=== PATIENT | female | born 1970 | race Caucasian/White ===

== ENCOUNTER 2016-12-09 15:21 | Observation (INO) ==
[2016-12-09] MEDS ORDERED: Ketorolac 30 MG/ML VIAL IV ONE (16:18)
[2016-12-09 16:20] LABS: Bilirubin,Urine Negative (Negative); Blood,Urine Large (Negative); Clarity,Urine Cloudy (Clear); Color,Urine Dark Yellow (Yellow); Glucose,Urine (UA) Normal (Normal); Ketones,Urine Negative (Negative); Leukocyte Esterase,Urine Trace (Negative); Nitrite,Urine Negative (Negative); Protein,Urine 30 mg/dL (Neg-Trace); Specific Gravity,Urine 1.023 (1.010-1.025); Urobilinogen,Urine Normal (Normal)
[2016-12-09 16:23] LABS: Bacteria,Urine None Seen per hpf (None-Few); Hyaline Casts,Urine None Seen per lpf (None-Few); RBC,Urine TNTC per hpf (0-3); Squamous Epithelial Cell,Urine Many per lpf (None-Few); WBC,Urine 0-3 per hpf (0-3)
[2016-12-09 17:24] LABS: Basophils # 0.1 K/mcL (0.0-0.2); Basophils % 0.5 %; Eosinophils # 0.1 K/mcL (0.0-0.6); Hematocrit 33.9 % (35.3-44.9); Hemoglobin 11.7 g/dL (11.5-15.4); Immature Granulocytes % 0.3 % (0-4); Lymphocytes # 1.5 K/mcL (0.6-4.6); Lymphocytes % 14.3 %; Mean Corpuscular HGB Conc 34.5 g/dL (31.6-35.5); Mean Corpuscular Hemoglobin 29.5 pg (28.0-33.3); Mean Corpuscular Volume 85.6 fL (83.0-100.0); Mean Platelet Volume 9.1 fL (9.4-12.4); Monocytes # 0.8 K/mcL (0.0-1.3); Monocytes % 7.1 %; Neutrophils # 8.2 K/mcL (1.6-8.9); Platelet Count 242 K/mcL (140-400); Red Blood Count 3.96 M/mcL (3.82-4.97); Red Cell Distribution Width 12.6 % (11.5-14.5); Segmented Neutrophils % 76.8 %
[2016-12-09 17:38] LABS: Alanine Aminotransferase 23 Units/L (0-55); Albumin 3.5 g/dL (3.5-5.0); Albumin/Globulin Ratio 1.1 (1.1-2.2); Alkaline Phosphatase 77 Units/L (38-126); Amylase 39 Units/L (25-125); Aspartate Amino Transferase 17 Units/L (5-34); BUN/Creatinine Ratio 11 (6-26); Bilirubin,Direct 0.2 mg/dL (0.0-0.5); Bilirubin,Indirect 0.4 mg/dL (0.0-1.2); Bilirubin,Total 0.6 mg/dL (0.2-1.2); Blood Urea Nitrogen 8 mg/dL (7-20); Calcium 8.9 mg/dL (8.6-10.8); Carbon Dioxide 27 mEq/L (19-29); Chloride 108 mEq/L (98-109); Globulin 3.1 g/dL (2.4-3.5); Glucose 103 mg/dL (70-99); Lipase 27 Units/L (8-78); Osmolality,Calculated 295 (280-300); Potassium 3.5 mEq/L (3.5-4.5); Sodium 143 mEq/L (136-145); Total Protein 6.6 g/dL (6.0-8.3); eGFR For African Americans > 60 (> 60); eGFR For Non-African Americans > 60 (> 60)
[2016-12-09] MEDS ORDERED: Ondansetron 4 MG/2 ML VIAL IV ONE ×2 (18:03→18:09)
[2016-12-09] MEDS ORDERED: *HR* HYDROmorphone (PF) 1 MG/ML SYRINGE IV ONE (18:09)
--- NOTE | 2016-12-09 18:14 | Emergency Department Note ---
Disposition Clinical Impression: Ureterolithiasis Disposition: Still a Patient Condition: Fair Referrals: NO,PCP [Primary Care Provider] - Forms: Work/School Release, ED Satisfaction Letter Time of Disposition: 19:09 Abdominal Pain HPI - General Chief Complaint: ED Abdominal Pain Stated Complaint: back/pelvic pain Time Seen by Provider: 12/09/16 16:18 Source: patient Nursing Notes Reviewed: Yes Vital Signs Reviewed: Yes - History of Present Illness HPI Narrative: 38-year-old female history of nephrolithiasis, presents with right lower quadrant pain, right flank pain 10 out of 10 started a few hours prior to arrival. Patient actually walked in through the EMS entrance, complaining of pain, she was brought back out to the triage area where she was triaged, severe that she cannot 10 pain, was given Toradol, and urinalysis and subsequent blood work was ordered to evaluate for nephrolithiasis. Patient states that she still 10 out of 10 pain, she is quite tearful on exam she is evaluated. Pt Subjective Complaint: abdominal pain, flank pain Onset (ago): hour(s) Consistency: intermittent Pain Severity: severe Pain Scale: 10 Quality: cramping, stabbing Radiation: R flank Migration to: no migration Improves with: nothing Worsens with: nothing Context: foreign travel Associated symptoms: Reports: nausea. Denies: vomiting, diarrhea, constipation , dysuria Treatments prior to arrival: none - Related Data Previous Rx's Medication Instructions Recorded Ondansetron ODT [Zofran ODT] 4 mg SL Q6HR PRN #14 tab.rapdis 03/16/16 Cyclobenzaprine [Flexeril] 10 mg PO TID #30 tablet 04/06/16 OxyCODONE/APAP 10/325 [Percocet 1 each PO Q6HR PRN #15 tablet 04/06/16 10/325 MG] Allergies Allergy/AdvReac Type Severity Reaction Status Date / Time oseltamivir [From Tamiflu] Allergy Swelling Verified 03/16/16 06:04 of Lip/Tongue/Throat Sulfa (Sulfonamide Allergy Swelling Verified 03/16/16 06:04 Antibiotics) of Lip/Tongue/Throat All systems ED: reviewed and negative except as stated. Constitutional: Denies: fever, chills ENT ED: Denies: ear pain, throat pain Cardiovascular: Denies: chest pain, palpitations Respiratory: Denies: cough Gastrointestinal: Reports: abdominal pain, nausea. Denies: vomiting, diarrhea, hematemesis Genitourinary: Denies: urgency, dysuria Musculoskeletal: Reports: as per HPI, back pain Integumentary: Denies: rash, abrasion Neurological: Denies: headache, weakness Psychiatric: Denies: anxiety, depression Abdominal Pain PMH - Past Medical History Medical history: Reports: diabetes, fibromyalgia, kidney stones, other Female Surgical History: Reports: hysterectomy, other Psychiatric history: Reports: anxiety, depression, panic disorder - Social History Smoking status: Never smoker Alcohol use: Reports: rarely Drug use: Reports: none Physical Exam Constitutional: Tearful, appears very uncomfortable Neck: normal inspection, neck is supple, trachea midline Resp: normal chest inspection, CTA bilaterally, no resp distress CV: RRR, no m/g/r GI: normal inspection, mild ttpalpation right upper quadrant. Back: Positive right CVA tenderness Neuro: A&O3, no gross motor or sensory deficits bilaterally Skin: No rashes, skin warm, dry, intact - General Limitations: no limitations General appearance: alert Course Course Narrative: 46-year-old female appears in moderate distress, is very tender right CVA tenderness also has some left-sided CVA tenderness. CT scan ordered to evaluate for obstructive nephrolithiasis - Reevaluation(s) Reevaluation #1: 3Millimeter stone, will discuss with urology as the patient states that she cannot go home secondary to pain, and she is previously required lithotripsy and intervention for her ureterolithiasis, pending call Time: 19:09 Vital Signs Temperature 97.8 F 12/09/16 15:50 Pulse Rate 86 12/09/16 15:50 Respiratory Rate 22 12/09/16 15:50 Blood Pressure 131/81 12/09/16 15:50 O2 Sat by Pulse Oximetry 100 12/09/16 15:50 Temperature 97.8 F 12/09/16 15:50 Pulse Rate 67 12/09/16 18:30 Respiratory Rate 16 12/09/16 18:30 Blood Pressure 141/83 12/09/16 18:30 O2 Sat by Pulse Oximetry 97 12/09/16 18:30 Oxygen Delivery Oxygen Delivery Room Air Abdominal Pain - Lab Data Result diagrams: 12/09/16 17:17 12/09/16 17:17 Lab Results 0312/09/16 12/09/16 Range/Units 16:07 17:17 17:17 WBC 10.6 (4.3-11.1) K/mcL RBC 3.96 (3.82-4.97) M/mcL Hgb 11.7 (11.5-15.4) g/dL Hct 33.9 L (35.3-44.9) % MCV 85.6 (83.0-100.0) fL MCH 29.5 (28.0-33.3) pg MCHC 34.5 (31.6-35.5) g/dL RDW 12.6 (11.5-14.5) % Plt Count 242 (140-400) K/mcL MPV 9.1 L (9.4-12.4) fL Immature Gran % 0.3 (0-4) % Seg Neutrophils % 76.8 % Lymphocytes % 14.3 % Monocytes % 7.1 % Eosinophils % 1.0 % Basophils % 0.5 % Neutrophils # 8.2 (1.6-8.9) K/mcL Lymphocytes # 1.5 (0.6-4.6) K/mcL Monocytes # 0.8 (0.0-1.3) K/mcL Eosinophils # 0.1 (0.0-0.6) K/mcL Basophils # 0.1 (0.0-0.2) K/mcL Sodium 143 (136-145) mEq/L Potassium 3.5 (3.5-4.5) mEq/L Chloride 108 (98-109) mEq/L Carbon Dioxide 27 (19-29) mEq/L BUN 8 (7-20) mg/dL Creatinine 0.76 (0.57-1.11) mg/dL Est GFR ( Amer) > 60 (> 60) Est GFR (Non-Af Amer) > 60 (> 60) BUN/Creatinine Ratio 11 (6-26) Glucose 103 H (70-99) mg/dL Calculated Osmolality 295 (280-300) Calcium 8.9 (8.6-10.8) mg/dL Total Bilirubin 0.6 (0.2-1.2) mg/dL Direct Bilirubin 0.2 (0.0-0.5) mg/dL Indirect Bilirubin 0.4 (0.0-1.2) mg/dL AST 17 (5-34) Units/L ALT 23 (0-55) Units/L Alkaline Phosphatase 77 (38-126) Units/L Serum Total Protein 6.6 (6.0-8.3) g/dL Albumin 3.5 (3.5-5.0) g/dL Globulin 3.1 (2.4-3.5) g/dL Albumin/Globulin Ratio 1.1 (1.1-2.2) Amylase 39 (25-125) Units/L Lipase 27 (8-78) Units/L Urine Color Dark Yellow (Yellow) Urine Clarity Cloudy A (Clear) Urine pH 6.0 (5.0-8.0) pH Units Ur Specific [place] 1.023 (1.010-1.025) Urine Protein 30 H (Neg-Trace) mg/dL Urine Glucose (UA) Normal (Normal) mg/dL Urine Ketones Negative (Negative) mg/dL Urine Blood Large H (Negative) Urine Nitrite Negative (Negative) Urine Bilirubin Negative (Negative) Urine Urobilinogen Normal (Normal) mg/dL Ur Leukocyte Esterase Trace H (Negative) Urine Microscopic RBC TNTC H (0-3) per hpf Urine Microscopic WBC 0-3 (0-3) per hpf Ur Squamous Epith Cells Many H (None-Few) per lpf Urine Bacteria None Seen (None-Few) per hpf Hyaline Casts None Seen (None-Few) per lpf Ur Culture Indicated? YES A (NO) S.B.A.R. - S.Carlos.A.RMagalys Transition of Care: Pending urology conult Situation: Demographics, MOA Background: Presenting Complaint, Relevant PMH, Meds, & Allergies Assessment: Vital Signs, Course and respsone to treatment, Exam Concerns, Patient/Family Expectation, Pertinant Lab Results, Outstanding Labs Recommendation: Barrier(s) to disposition, Recommendation based on pending studies, treatments, or consults S.B.A.R. Report Given to: Arie Morfin Repor Time: 19:09 Attestation Statement - Attestation Attestation: I examined this patient and my medical decision-making was reviewed with the [employer]/PA/Advanced Practice Nurse/Resident Physician. I agree with the documented findings, disposition and treatment plan as described except to the extent set forth below. I examined this patient and my medical decision-making was reviewed with the [employer]/PA/Advanced Practice Nurse/Resident Physician. I agree with the documented findings, disposition and treatment plan as described except to the extent set forth below. Patient to the emergency department with abdominal and flank pain. She feels like someone squeezing about around her. Pain to the right side of her back. History kidney stones and she states it feels like that. On exam she is laying on her side. She is crying and rocking around in the bed. Right CVA tenderness with percussion. Plan. CT.
[2016-12-09] MEDS ORDERED: *HR* Morphine 2 MG/ML SYRINGE IV ONE (18:49)
[2016-12-09] MEDS ORDERED: *HR* HYDROmorphone (PF) 1 MG/ML SYRINGE IVP ONE ×2 (19:24→20:49)
--- NOTE | 2016-12-09 20:56 | Emergency Department Note ---
Disposition Clinical Impression: Ureterolithiasis Disposition: Admitted As Inpatient Condition: Good Abdominal Pain HPI - General Chief Complaint: ED Abdominal Pain Stated Complaint: back/pelvic pain Time Seen by Provider: 12/09/16 16:18 Source: patient - History of Present Illness Pt Subjective Complaint: abdominal pain, flank pain Pain Severity: severe Pain Scale: 10 Quality: cramping, stabbing Migration to: no migration Improves with: nothing Worsens with: nothing Context: foreign travel Associated symptoms: Reports: nausea. Denies: vomiting, diarrhea, constipation , dysuria - Related Data Home Medications Medication Instructions Recorded Confirmed Albuterol Sulfate [Ventolin Hfa] 2 puff IH Q4H PRN 12/09/16 12/09/16 Budesonide/Formoterol 160/4.5 2 puff IH BID 12/09/16 12/09/16 [Symbicort 160/4.5] ClonazePAM [Klonopin] 1 mg PO BID 12/09/16 12/09/16 Diclofenac Sodium [Voltaren] 1 appl TP QID PRN 12/09/16 12/09/16 Eletriptan HBr [Relpax] 40 mg PO AD PRN 12/09/16 12/09/16 Metformin [Glucophage] 500 mg PO BIDWM 12/09/16 12/09/16 Modafinil [Provigil] 200 mg PO BID 12/09/16 12/09/16 Oxybutynin [Ditropan] 5 mg PO BID 12/09/16 12/09/16 Pantoprazole Sodium [Protonix] 40 mg PO DAILY 12/09/16 12/09/16 PredniSONE 5 mg PO DAILY 12/09/16 12/09/16 Previous Rx's Medication Instructions Recorded Oxycodone HCl/Acetaminophen 2 tab PO Q6H PRN #20 tablet 12/10/16 [Endocet 10-325 mg Tablet] Allergies Allergy/AdvReac Type Severity Reaction Status Date / Time oseltamivir [From Tamiflu] Allergy Swelling Verified 03/16/16 06:04 of Lip/Tongue/Throat Sulfa (Sulfonamide Allergy Swelling Verified 03/16/16 06:04 Antibiotics) of Lip/Tongue/Throat Constitutional: Denies: fever, chills ENT ED: Denies: ear pain, throat pain Cardiovascular: Denies: chest pain, palpitations Respiratory: Denies: cough Gastrointestinal: Reports: abdominal pain, nausea. Denies: vomiting, diarrhea, hematemesis Genitourinary: Denies: urgency, dysuria Musculoskeletal: Reports: as per HPI, back pain Integumentary: Denies: rash, abrasion Neurological: Denies: headache, weakness Psychiatric: Denies: anxiety, depression Abdominal Pain PMH - Past Medical History Medical history: Reports: diabetes, fibromyalgia, kidney stones, other Female Surgical History: Reports: hysterectomy, other Psychiatric history: Reports: anxiety, depression, panic disorder - Social History Smoking status: Never smoker Alcohol use: Reports: rarely Drug use: Reports: none Physical Exam - General Limitations: no limitations General appearance: alert Course Course Narrative: Patient signed out from the 18. In stable condition. History of renal stones requiring extraction in the past. Continues to have pain and nausea. - Reevaluation(s) Reevaluation #1: Patient continued to have pain despite medication. We will admit to urology for intractable pain, nausea and vomiting. Patient accepted by urology. Vital Signs Temperature 97.8 F 12/09/16 15:50 Pulse Rate 86 12/09/16 15:50 Respiratory Rate 22 12/09/16 15:50 Blood Pressure 131/81 12/09/16 15:50 O2 Sat by Pulse Oximetry 100 12/09/16 15:50 Temperature 98.4 F 12/10/16 12:35 Pulse Rate 56 12/10/16 12:35 Respiratory Rate 16 12/10/16 12:35 Blood Pressure 103/57 12/10/16 12:35 O2 Sat by Pulse Oximetry 98 12/10/16 12:35 Oxygen Delivery Oxygen Delivery Room Air Abdominal Pain - MDM Narrative Medical decision making narrative: 46-year-old female presents to the ER due to right flank pain. History of renal stones requiring stent extraction in the past. Afebrile here in the white count and renal function. CT scan shows a 3 mm obstructing stone. Patient accepted by urology for admission. - Lab Data Lab results reviewed: Yes I reviewed the patient's lab results. Result diagrams: 12/09/16 17:17 12/09/16 17:17 Lab Results 12/09/16 12/09/16 12/09/16 Range/Units 16:07 16:07 17:17 WBC 10.6 (4.3-11.1) K/mcL RBC 3.96 (3.82-4.97) M/mcL Hgb 11.7 (11.5-15.4) g/dL Hct 33.9 L (35.3-44.9) % MCV 85.6 (83.0-100.0) fL MCH 29.5 (28.0-33.3) pg MCHC 34.5 (31.6-35.5) g/dL RDW 12.6 (11.5-14.5) % Plt Count 242 (140-400) K/mcL MPV 9.1 L (9.4-12.4) fL Immature Gran % 0.3 (0-4) % Seg Neutrophils % 76.8 % Lymphocytes % 14.3 % Monocytes % 7.1 % Eosinophils % 1.0 % Basophils % 0.5 % Neutrophils # 8.2 (1.6-8.9) K/mcL Lymphocytes # 1.5 (0.6-4.6) K/mcL Monocytes # 0.8 (0.0-1.3) K/mcL Eosinophils # 0.1 (0.0-0.6) K/mcL Basophils # 0.1 (0.0-0.2) K/mcL Sodium (136-145) mEq/L Potassium (3.5-4.5) mEq/L Chloride (98-109) mEq/L Carbon Dioxide (19-29) mEq/L BUN (7-20) mg/dL Creatinine (0.57-1.11) mg/dL Est GFR ( Amer) (> 60) Est GFR (Non-Af Amer) (> 60) BUN/Creatinine Ratio (6-26) Glucose (70-99) mg/dL Calculated Osmolality (280-300) Calcium (8.6-10.8) mg/dL Total Bilirubin (0.2-1.2) mg/dL Direct Bilirubin (0.0-0.5) mg/dL Indirect Bilirubin (0.0-1.2) mg/dL AST (5-34) Units/L ALT (0-55) Units/L Alkaline Phosphatase (38-126) Units/L Serum Total Protein (6.0-8.3) g/dL Albumin (3.5-5.0) g/dL Globulin (2.4-3.5) g/dL Albumin/Globulin Ratio (1.1-2.2) Amylase (25-125) Units/L Lipase (8-78) Units/L Urine Color Dark Yellow (Yellow) Urine Clarity Cloudy A (Clear) Urine pH 6.0 (5.0-8.0) pH Units Ur Specific [place] 1.023 (1.010-1.025) Urine Protein 30 H (Neg-Trace) mg/dL Urine Glucose (UA) Normal (Normal) mg/dL Urine Ketones Negative (Negative) mg/dL Urine Blood Large H (Negative) Urine Nitrite Negative (Negative) Urine Bilirubin Negative (Negative) Urine Urobilinogen Normal (Normal) mg/dL Ur Leukocyte Esterase Trace H (Negative) Urine Microscopic RBC TNTC H (0-3) per hpf Urine Microscopic WBC 0-3 (0-3) per hpf Ur Squamous Epith Cells Many H (None-Few) per lpf Urine Bacteria None Seen (None-Few) per hpf Hyaline Casts None Seen (None-Few) per lpf Ur Culture Indicated? YES A (NO) Urine Test Negative (Negative) 12/09/16 Range/Units 17:17 WBC (4.3-11.1) K/mcL RBC (3.82-4.97) M/mcL Hgb (11.5-15.4) g/dL Hct (35.3-44.9) % MCV (83.0-100.0) fL MCH (28.0-33.3) pg MCHC (31.6-35.5) g/dL RDW (11.5-14.5) % Plt Count (140-400) K/mcL MPV (9.4-12.4) fL Immature Gran % (0-4) % Seg Neutrophils % % Lymphocytes % % Monocytes % % Eosinophils % % Basophils % % Neutrophils # (1.6-8.9) K/mcL Lymphocytes # (0.6-4.6) K/mcL Monocytes # (0.0-1.3) K/mcL Eosinophils # (0.0-0.6) K/mcL Basophils # (0.0-0.2) K/mcL Sodium 143 (136-145) mEq/L Potassium 3.5 (3.5-4.5) mEq/L Chloride 108 (98-109) mEq/L Carbon Dioxide 27 (19-29) mEq/L BUN 8 (7-20) mg/dL Creatinine 0.76 (0.57-1.11) mg/dL Est GFR ( Amer) > 60 (> 60) Est GFR (Non-Af Amer) > 60 (> 60) BUN/Creatinine Ratio 11 (6-26) Glucose 103 H (70-99) mg/dL Calculated Osmolality 295 (280-300) Calcium 8.9 (8.6-10.8) mg/dL Total Bilirubin 0.6 (0.2-1.2) mg/dL Direct Bilirubin 0.2 (0.0-0.5) mg/dL Indirect Bilirubin 0.4 (0.0-1.2) mg/dL AST 17 (5-34) Units/L ALT 23 (0-55) Units/L Alkaline Phosphatase 77 (38-126) Units/L Serum Total Protein 6.6 (6.0-8.3) g/dL Albumin 3.5 (3.5-5.0) g/dL Globulin 3.1 (2.4-3.5) g/dL Albumin/Globulin Ratio 1.1 (1.1-2.2) Amylase 39 (25-125) Units/L Lipase 27 (8-78) Units/L Urine Color (Yellow) Urine Clarity (Clear) Urine pH (5.0-8.0) pH Units Ur Specific [place] (1.010-1.025) Urine Protein (Neg-Trace) mg/dL Urine Glucose (UA) (Normal) mg/dL Urine Ketones (Negative) mg/dL Urine Blood (Negative) Urine Nitrite (Negative) Urine Bilirubin (Negative) Urine Urobilinogen (Normal) mg/dL Ur Leukocyte Esterase (Negative) Urine Microscopic RBC (0-3) per hpf Urine Microscopic WBC (0-3) per hpf Ur Squamous Epith Cells (None-Few) per lpf Urine Bacteria (None-Few) per hpf Hyaline Casts (None-Few) per lpf Ur Culture Indicated? (NO) Urine Test (Negative) - Radiology Data Radiology results reviewed: Yes I reviewed the patient's radiology results. Abdomen/Pelvis CT 12/09/16 18:03 IMPRESSION: Moderate right hydronephrosis secondary to an obstructing 3 mm calculus at the right ureteropelvic junction. No additional urinary tract calculus. D/ / Joseph Ni MD / Joseph Ni MD Interpreting Provider: Joseph Ni MD Shelbie - Shelbie Situation: Demographics, MOA Background: Presenting Complaint, Relevant PMH, Meds, & Allergies Assessment: Vital Signs, Course and respsone to treatment, Exam Concerns, Patient/Family Expectation, Pertinant Lab Results, Outstanding Labs Recommendation: Barrier(s) to disposition, Recommendation based on pending studies, treatments, or consults Shelbie Report Given to: Dr. Juan David Morfin Repor Time: 21:33 Attestation Statement - Attestation Attestation: I personally interviewed and examined this patient and my medical decision- making was reviewed with the ED Resident Physician, Dr. Sargent. I agree with the documented findings, disposition and treatment plan as described in the documentation. Pt with obstructing ureterolithiasis. Pt with intractable pain, will admit to Urology.
[2016-12-09] MEDS ORDERED: *HR* Promethazine 25 MG/ML VIAL IVP PRN (21:22)
[2016-12-09] MEDS: 0.9 % Sodium Chloride 1,000 ML IVC SCH (22:17)
[2016-12-09] MEDS: *HR* HYDROmorphone (PF) 1 MG/ML SYRINGE IV PRN (22:54)
[2016-12-10] MEDS ORDERED: Ketorolac 30 MG/ML VIAL IM SCH
[2016-12-10] MEDS: Ketorolac 30 MG/ML VIAL IVP SCH ×2 (00:06→05:16)
[2016-12-10] MEDS: *HR* HYDROmorphone (PF) 1 MG/ML SYRINGE IV PRN (06:16)
[2016-12-10] MEDS ORDERED: (Diclofenac Sodium [Voltaren] 1 APPL) TP PRN (07:10)
[2016-12-10] MEDS ORDERED: (Eletriptan Hbr [Relpax] 40 MG) PO PRN ×2 (07:10→11:49)
--- NOTE | 2016-12-10 07:18 | Urology History & Physical ---
Date of Encounter: 12/10/16 Time of Encounter: 07:15 Assessment and Plan (1) Ureterolithiasis Current Visit: Yes Status: Acute Patient was brought in for observation for IV pain control, IV fluids and IV nausea medication. If patient fails to pass the stone we will schedule the patient for right ureteroscopic stone extraction History of Present Illness Chief complaint: right flank pain HPI: Ms. Howe is a 46 year old female with 1 day history of right-sided flank pain and intermittent in nature. Patient also with vomiting. No fevers. Patient presented to the emergency department was found to have a proximal 3 mm right ureteral stone. Patient was brought in for observation for IV pain control IV nausea medication and IV fluids. Past Med Surg Social Fam HX - Past Medical History Medical history: COPD, diabetes, fibromyalgia, kidney stones, other Psychiatric history: anxiety, depression, panic disorder - Social History Smoking Status: Never smoker Smokeless Tobacco Status: No Alcohol use: none Drug use: none Medications and Allergies Albuterol Sulfate [Ventolin Hfa] 2 puff IH Q4H PRN 12/09/16 [History] Budesonide/Formoterol 160/4.5 [Symbicort 160/4.5] 2 puff IH BID 12/09/16 [ History] ClonazePAM [Klonopin] 1 mg PO BID 12/09/16 [History] Diclofenac Sodium [Voltaren] 1 appl TP QID PRN 12/09/16 [History] Eletriptan HBr [Relpax] 40 mg PO AD PRN 12/09/16 [History] Metformin [Glucophage] 500 mg PO BIDWM 12/09/16 [History] Modafinil [Provigil] 200 mg PO BID 12/09/16 [History] Oxybutynin [Ditropan] 5 mg PO BID 12/09/16 [History] Oxycodone HCl/Acetaminophen [Endocet 10-325 mg Tablet] 1 tab PO Q6H PRN [History] Pantoprazole Sodium [Protonix] 40 mg PO DAILY 12/09/16 [History] PredniSONE [PredniSONE] 5 mg PO DAILY 12/09/16 [History] Allergies oseltamivir [From Tamiflu] Allergy (Verified 03/16/16 06:04) Swelling of Lip/Tongue/Throat Sulfa (Sulfonamide Antibiotics) Allergy (Verified 03/16/16 06:04) Swelling of Lip/Tongue/Throat Review of Systems - Constitutional no chills - EENT Nose, mouth and throat: no dizziness - Cardiovascular no chest pain - Respiratory no cough Exam Initial Vital Signs Temp Pulse Resp BP Pulse Ox 97.8 F 86 22 131/81 100 12/09/16 15:50 12/09/16 15:50 12/09/16 15:50 12/09/16 15:50 12/09/16 15:50 - General physical appearance Present: well developed - ENT Present: normal nares - Neck Present: no masses - Respiratory Present: normal respiratory effort - Cardiovascular Cardiovascular exam IM: RRR Urology Results - Labs 12/09/16 17:17 12/09/16 17:17 Abnormal lab results Hct 33.9 % (35.3-44.9) L 12/09/16 17:17 MPV 9.1 fL (9.4-12.4) L 12/09/16 17:17 Glucose 103 mg/dL (70-99) H 12/09/16 17:17 Urine Clarity Cloudy (Clear) A 12/09/16 16:07 Urine Protein 30 mg/dL (Neg-Trace) H 12/09/16 16:07 Urine Blood Large (Negative) H 12/09/16 16:07 Ur Leukocyte Esterase Trace (Negative) H 12/09/16 16:07 Urine Microscopic RBC TNTC per hpf (0-3) H 12/09/16 16:07 Ur Squamous Epith Cells Many per lpf (None-Few) H 12/09/16 16:07 Ur Culture Indicated? YES (NO) A 12/09/16 16:07 All other labs normal. - Imaging CT scan - abdomen: image reviewed CT scan - pelvis: image reviewed
[2016-12-10] MEDS ORDERED: *HR* Metformin 500 MG TABLET PO SCH ×2 (08:00→17:00)
[2016-12-10] MEDS: 0.9 % Sodium Chloride 1,000 ML IVC SCH (08:20)
[2016-12-10] MEDS ORDERED: clonazePAM 1 MG TABLET PO SCH ×2 (09:00→21:00)
[2016-12-10] MEDS ORDERED: predniSONE 5 MG TABLET PO SCH (09:00)
--- NOTE | 2016-12-10 09:17 | Anesthesia Evaluation PreOp ---
Date of Encounter: 12/10/16 Time of Encounter: 09:15 - Past History Planned Operation: Rt Ureteral Stone Extraction with Laser Cardiac History: Denies any Significant Hx Pulmonary History: COPD, SHAW Dx ENERGY EFFICIENCY FINANCE MANAGER History: Other (Fibromyalgia) Other Medical History: Diabetes Type II (Accu check 101) Anesthesia History: No Prior Anesthetic Complications : No (Hysterectomy) Alcohol Use: none Drug use: none Medications and Allergies Albuterol Sulfate [Ventolin Hfa] 2 puff IH Q4H PRN 12/09/16 [History] Budesonide/Formoterol 160/4.5 [Symbicort 160/4.5] 2 puff IH BID 12/09/16 [ History] ClonazePAM [Klonopin] 1 mg PO BID 12/09/16 [History] Diclofenac Sodium [Voltaren] 1 appl TP QID PRN 12/09/16 [History] Eletriptan HBr [Relpax] 40 mg PO AD PRN 12/09/16 [History] Metformin [Glucophage] 500 mg PO BIDWM 12/09/16 [History] Modafinil [Provigil] 200 mg PO BID 12/09/16 [History] Oxybutynin [Ditropan] 5 mg PO BID 12/09/16 [History] Oxycodone HCl/Acetaminophen [Endocet 10-325 mg Tablet] 1 tab PO Q6H PRN [History] Pantoprazole Sodium [Protonix] 40 mg PO DAILY 12/09/16 [History] PredniSONE [PredniSONE] 5 mg PO DAILY 12/09/16 [History] Allergies oseltamivir [From Tamiflu] Allergy (Verified 03/16/16 06:04) Swelling of Lip/Tongue/Throat Sulfa (Sulfonamide Antibiotics) Allergy (Verified 03/16/16 06:04) Swelling of Lip/Tongue/Throat - Meds/Allergy Pre-op Review Medications Reviewed: Yes Allergies Reviewed: Yes Beta Blockers on Current Med List: No Anesthesia Results - Labs 12/09/16 17:17 12/09/16 17:17 - Imaging EKG: pending Anesthesia Exam O2 Sat Height 1.57 m Height 1.57 m Weight 72.575 kg Weight 68.039 kg O2 Sat by Pulse Oximetry 96 O2 Sat by Pulse Oximetry 96 O2 Sat by Pulse Oximetry 93 O2 Sat by Pulse Oximetry 98 O2 Sat by Pulse Oximetry 98 O2 Sat by Pulse Oximetry 96 O2 Sat by Pulse Oximetry 97 O2 Sat by Pulse Oximetry 100 O2 Sat by Pulse Oximetry 97 O2 Sat by Pulse Oximetry 98 O2 Sat by Pulse Oximetry 100 Vital Signs Temp Pulse Resp BP Pulse Ox 97.8 F 86 22 131/81 100 12/09/16 15:50 12/09/16 15:50 12/09/16 15:50 12/09/16 15:50 12/09/16 15:50 Height: 5'2 Weight: 160 lbs NPO (# of Hours): MN Pain Scale: 0 - HEENT Pupil (Motor): Pupils equal, EOMI Mallampati: II Teeth: Missing Oral Opening: Greater than 3 - ENERGY EFFICIENCY FINANCE MANAGER LOC: Oriented ENERGY EFFICIENCY FINANCE MANAGER Motor: Normal RUE, Normal LUE, Normal RLE, Normal LLE, Normal Face ENERGY EFFICIENCY FINANCE MANAGER Sensory: Normal: RUE, LUE, RLE, LLE, Face - Cardiac Rhythm: Regular Murmur: None JVD: No Carotid Bruit: No - Pulmonary Breath Sounds: bilateral Clear Respiratory Effort: Symmetrical Anesthesia Assess/Plan ASA Score: 2 Modified [place] Scale for Level of Consciousness: Cooperative, oriented, and tranquil Anesthetic Plan: General Monitoring Plan: Standard Monitors Recovery Plan: PACU (Discussed GA, agrees to proceed)
[2016-12-10] MEDS ORDERED: Ondansetron 4 MG/2 ML VIAL ONE (09:35)
[2016-12-10] MEDS ORDERED: *HR* FentaNYL (PF) 100 MCG/2 ML VIAL ONE (09:35)
[2016-12-10] MEDS ORDERED: Lidocaine -MPF 2% 2 ML VIAL ONE (09:35)
[2016-12-10] MEDS ORDERED: *HR* Propofol 200 MG/20 ML VIAL IVP ONE (09:35)
[2016-12-10] MEDS ORDERED: Dexamethasone 4 MG/ML VIAL ONE (09:35)
[2016-12-10] MEDS ORDERED: Ipratropium/Albuterol Neb 3 ML ONE (09:48)
[2016-12-10] MEDS ORDERED: Budesonide/Formoterol 160/4.5 MDI IH SCH ×2 (10:00→22:00)
[2016-12-10] MEDS ORDERED: *HR* Promethazine 25 MG/ML VIAL IVP PRN ×2 (10:29→11:49)
[2016-12-10] MEDS ORDERED: *HR* Meperidine 25 MG/ML SYRINGE IVP PRN (10:29)
[2016-12-10] MEDS ORDERED: *HR* OxyCODONE/APAP 5/325 TABLET PO PRN (10:29)
[2016-12-10] MEDS ORDERED: Ketorolac 15 MG/ML VIAL IVP ONE (10:29)
--- NOTE | 2016-12-10 11:20 | Anesthesia Evaluation Post Op ---
Date of Encounter: 12/10/16 Time of Encounter: 11:15 - Vital Signs Vital Signs: Vital Signs/O2 Sat/Glucose, Most Current Temp Pulse Resp BP Pulse Ox 12/10/16 11:04 61 13 100 12/10/16 10:54 97.8 F 55 14 115/85 100 12/10/16 10:44 63 13 134/75 100 12/10/16 10:34 58 14 125/77 97 12/10/16 10:24 97.7 F 72 20 140/84 95 12/10/16 08:03 96 12/10/16 07:33 98.2 F 70 18 94/54 96 - Lungs Lungs: Clear Ascult./Percussion - Airway Airway: Non-obstructed - Cardiovascular Regular Rate - Mental Status Mental Status: Alert & Oriented, Answers Appropriately - Pain Pain Scale: 0 - Nausea Vomiting Nausea Vomiting: Not Present - Hydration Hydration: NPO - Discharge PostOp Status: Transfer Patient to floor
--- NOTE | 2016-12-10 11:40 | Operative Note ---
Date of procedure: 12/10/16 Pre-op diagnosis: right ureteral stone Post-op diagnosis: same Procedure: Cystoscopy, right retrograde pyelogram, right ureteroscopic stone extraction with laser and basket, right 6 x 26 cm ureteral stent placement Anesthesia: YUDIA Surgeon: Nick Fall Specimen: right ureteral stone Condition: stable Disposition: PACU Procedure in Detail: The patient was prepped and draped in normal sterile fashion after being placed in lithotomy position. I then inserted the cystoscope into the patient's bladder. I then cannulated the right ureter with a sensor wire. I then placed the semirigid ureteroscope into the ureter. Once I encountered the stone, I used the holmium laser to fragment the stone into multiple small pieces. I then used a Nitinol tipless basket to remove all stone fragments from the patient's ureter. Once this was done, the ureter was surveyed with no further stones seen. I then performed a retrograde pyelogram using Dilute contrast which showed significant J hooking of the proximal ureter. I was able to negotiate a Glidewire beyond this with no further stones seen. I then back fed a 4.8x26cm ureteral stent on the right side into place, with good curl seen in the kidney and in the bladder. This was placed using fluoroscopic guidance. A string was left for easy removal. The procedure was ended.
[2016-12-10] MEDS ORDERED: *HR* HYDROcodone/Acet 5/325 mg TABLET PO PRN (11:49)
[2016-12-10] MEDS ORDERED: 0.9 % Sodium Chloride 1,000 ML IVC SCH (11:49)
[2016-12-10] MEDS ORDERED: *HR* HYDROmorphone (PF) 1 MG/ML SYRINGE IV PRN ×2 (11:49→12:20)
[2016-12-10] MEDS ORDERED: NON-FORMULARY MEDICATION 1 EACH EACH (Diclofenac Sodium [Voltaren] 1 APPL) TP PRN (11:49)
[2016-12-10] MEDS ORDERED: Ketorolac 30 MG/ML VIAL IVP SCH (12:00)
--- NOTE | 2016-12-10 12:43 | Discharge Summary ---
Date of Encounter: 12/10/16 Time of Encounter: 12:41 - Discharge Diagnosis (1) Ureterolithiasis Priority: Primary Status: Acute - Discharge Medications Prescriptions: Oxycodone HCl/Acetaminophen [Endocet 10-325 mg Tablet] 2 tab PO Q6H PRN #20 tablet PRN Reason: Pain Home Medications: Albuterol Sulfate [Ventolin Hfa] 2 puff IH Q4H PRN 12/09/16 [History] Budesonide/Formoterol 160/4.5 [Symbicort 160/4.5] 2 puff IH BID 12/09/16 [ History] ClonazePAM [Klonopin] 1 mg PO BID 12/09/16 [History] Diclofenac Sodium [Voltaren] 1 appl TP QID PRN 12/09/16 [History] Eletriptan HBr [Relpax] 40 mg PO AD PRN 12/09/16 [History] Metformin [Glucophage] 500 mg PO BIDWM 12/09/16 [History] Modafinil [Provigil] 200 mg PO BID 12/09/16 [History] Oxybutynin [Ditropan] 5 mg PO BID 12/09/16 [History] Pantoprazole Sodium [Protonix] 40 mg PO DAILY 12/09/16 [History] PredniSONE 5 mg PO DAILY 12/09/16 [History] Oxycodone HCl/Acetaminophen [Endocet 10-325 mg Tablet] 2 tab PO Q6H PRN #20 tablet 12/10/16 [Rx] Allergies/Adverse Reactions: Allergies oseltamivir [From Tamiflu] Allergy (Verified 03/16/16 06:04) Swelling of Lip/Tongue/Throat Sulfa (Sulfonamide Antibiotics) Allergy (Verified 03/16/16 06:04) Swelling of Lip/Tongue/Throat Procedures and tests throughout hospitalization: right stone extraction and right 4.8x26cm stent placement on 12/10 Labs on day of discharge: Labs from last 24 hours 12/10/16 07:52 POC Glucose 101 H - Impressions ITS Impressions Retrograde Pyelogram 12/10/16 00:00 IMPRESSION: Intraprocedural fluoroscopic spot images as above. See separate procedure report for more information. D/ / Vamshi Garrison MD / Vamshi Garrison MD Interpreting Provider: Vamshi Garrison MD Date of admission: 12/09/16 21:03 Primary care physician: PCP ZACK Discharging clinician: Nick Fall Anticipated date of discharge: 12/10/16 - Patient Status Disposition: Home, Self-Care Condition: Good Overall status at discharge: patient is progressing back to baseline - Discharge Instructions Follow Up With: ZACK,PCP [Primary Care Provider] - Nick Fall MD [Partnered Physician] - (this . ) - Diet and Activity Activity: increase activity as tolerated Diet: advance to your usual diet - Hospital Course Hospital course: Ms. Howe is a 46 year old female brought in for observation for right ureteral stone. taken to OR for stone extraction. recovered well on floor. Time spent discussing smoking cessation with patient: 3 to 10 minutes - Time Spent with Patient Total time spent providing and/or coordinating discharge services: Less than 30 minutes Exam Initial Vital Signs Temp Pulse Resp BP Pulse Ox 97.8 F 86 22 131/81 100 12/09/16 15:50 12/09/16 15:50 12/09/16 15:50 12/09/16 15:50 12/09/16 15:50 - General physical appearance Present: well developed - Eyes Present: PERRL - ENT Present: normal nares - Neck Present: no masses - Respiratory Present: normal respiratory effort
[2016-12-10 12:50] VITALS: BP 103/57
--- NOTE | 2016-12-10 15:51 | Electrocardiograph Report ---
[place] [id number] Test Date: 2016-12-10 Pat Name: Valentina Howe Department: 106 Room: 2A Gender: F Frame Stylist: : 1970 Requested By: Donald Narayan Order Number: [id number] Reading MD: Mira Pruett Measurements Intervals Protem Rate: 67 P: 53 VA: 146 QRS: 27 QRSD: 82 T: 76 QT: 379 QTc: 394 Interpretive Statements SINUS RHYTHM WITH SINUS ARRHYTHMIA Electronically Signed On 12-10-2016 15:49:30 EDT by Mira Pruett
[2016-12-10] MEDS ORDERED: clonazePAM 0.5 MG TABLET PO SCH (21:00)
[2016-12-11] MEDS ORDERED: predniSONE 5 MG TABLET PO SCH (09:00)
== END 2016-12-10 17:00 | disposition home or self-care (01) ==
LOC: 2ANU 15:21 → EMEROO 15:21 → 2ANU 21:30
PROVIDERS: ADMIT Urology; ATTEND Urology

== ENCOUNTER 2019-04-27 16:13 | Observation (INO) ==
[2019-04-27 17:07] LABS: Basophils # 0.1 K/mcL (0.0-0.2); Basophils % 0.6 %; Eosinophils # 0.3 K/mcL (0.0-0.6); Eosinophils % 2.8 %; Hematocrit 41.9 % (35.3-44.9); Hemoglobin 13.9 g/dL (11.5-15.4); Immature Granulocytes % 0.6 % (0-4); Lymphocytes # 2.7 K/mcL (0.6-4.6); Lymphocytes % 27.4 %; Mean Corpuscular HGB Conc 33.2 g/dL (31.6-35.5); Mean Corpuscular Hemoglobin 29.2 pg (28.0-33.3); Mean Platelet Volume 9.7 fL (9.4-12.4); Monocytes % 9.7 %; Neutrophils # 5.8 K/mcL (1.6-8.9); Platelet Count 242 K/mcL (140-400); Red Blood Count 4.76 M/mcL (3.82-4.97); Red Cell Distribution Width 12.2 % (11.5-14.5); Segmented Neutrophils % 58.9 %; White Blood Count 9.8 K/mcL (4.3-11.1)
--- NOTE | 2019-04-27 17:11 | Emergency Department Note ---
Disposition Clinical Impression: Chest pain Disposition: Admitted As Inpatient Condition: Good Time of Disposition: 00:00 Chest Pain HPI - General Chief Complaint: ED Chest Pain Stated Complaint: Abnormal halter monitor reading Time Seen by Provider: 04/27/19 16:38 Source: patient Limitations: no limitations Vital Signs Reviewed: Yes - History of Present Illness Pt complaint: chest pain Duration: intermittent Pain Location: substernal Severity scale (1-10): 8 - Related Data Home Medications Medication Instructions Recorded Confirmed Albuterol Sulfate [Ventolin Hfa] 2 puff IH Q4H PRN 12/09/16 04/27/19 Budesonide/Formoterol 160/4.5 2 puff IH BID 12/09/16 04/27/19 [Symbicort 160/4.5] Diclofenac Sodium [Voltaren] 1 appl TP QID PRN 12/09/16 04/27/19 Oxybutynin [Ditropan] 5 mg PO BID 12/09/16 04/27/19 Pantoprazole Sodium [Protonix] 40 mg PO DAILY 12/09/16 04/27/19 clonazePAM [Klonopin] 1 mg PO BID 12/09/16 04/27/19 metFORMIN [Glucophage] 500 mg PO BIDWM 12/09/16 04/27/19 Albuterol Sulfate [Ventolin Hfa] 90 mcg IN DAILY 04/27/19 04/27/19 Atorvastatin Calcium [Lipitor] 10 mg PO HS 04/27/19 04/27/19 Dexlansoprazole [Dexilant] 60 mg PO DAILY 04/27/19 04/27/19 Ondansetron [Zofran ODT] 8 mg SL Q8H PRN 04/27/19 04/27/19 Oxybutynin Chloride [Ditropan XL] 5 mg PO DAILY 04/27/19 04/27/19 Prazosin [Minipress] 1 mg PO HS 04/27/19 04/27/19 SUMAtriptan succinate [Imitrex] 25 mg PO PRN PRN 04/27/19 04/27/19 Vilazodone HCl [Viibryd] 40 mg PO DAILY 04/27/19 04/27/19 Previous Rx's Medication Instructions Recorded Aspirin Enteric Coated [Aspirin EC] 81 mg PO DAILY #30 tablet. 08/07/19 Oxycodone HCl/Acetaminophen 1 tab PO BID PRN 1 Days #1 04/28/19 [Endocet 10-325 mg Tablet] Allergies Allergy/AdvReac Type Severity Reaction Status Date / Time oseltamivir [From Tamiflu] Allergy Swelling Verified 03/16/16 06:04 of Lip/Tongue/Throat Sulfa (Sulfonamide Allergy Swelling Verified 03/16/16 06:04 Antibiotics) of Lip/Tongue/Throat All systems ED: reviewed and negative except as stated. Cardiovascular: Reports: chest pain, syncope Chest Pain PMH - Past Medical History Medical history: Reports: asthma, diabetes, fibromyalgia, hypertension, kidney stones, migraine, other Surgical history: Reports: hysterectomy, orthopedic, other, other Psychiatric history: Reports: anxiety, depression, panic disorder - Social History Smoking Status: Never smoker Alcohol use: Reports: rarely Drug use: Reports: none Physical Exam - General Limitations: no limitations General appearance: alert, in no apparent distress - Head Head exam: atraumatic, normocephalic, normal inspection - Eye Eye exam: Present: normal appearance, PERRL, EOMI - ENT ENT exam: normal exam - Neck Neck exam: Present: normal inspection - Chest Chest inspection: Present: normal inspection, symmetric chest wall rise - Respiratory Respiratory exam: Present: normal lung sounds bilaterally, respiratory distress - Cardiovascular Cardiovascular exam: Present: regular rate, normal rhythm - Abdominal Exam Abdominal exam: Present: soft, Non-Tender. Absent: tenderness - Extremities Exam Extremities exam: Present: normal inspection, normal capillary refill. Absent: tenderness, pedal edema, joint swelling, calf tenderness - Expanded Lower Extremity Exam Lower leg exam: Present: normal inspection. Absent: erythema, palpable cord, Homans' sign Neurovascular/Tendon exam: Present: normal capillary refill. Absent: pulse deficit, motor deficit, sensory deficit - Back Exam Back exam: Present: normal inspection - Neurological Exam Neurological exam: Present: alert, oriented X3 - Psychiatric Psychiatric exam: Present: normal affect, normal mood - Skin Skin exam: Present: warm, dry, intact, normal color Course Vital Signs Temperature 98.5 F 04/27/19 16:20 Pulse Rate 74 04/27/19 16:20 Respiratory Rate 16 04/27/19 16:20 Blood Pressure 144/93 04/27/19 16:20 O2 Sat by Pulse Oximetry 97 04/27/19 16:20 Temperature 97.9 F 04/28/19 11:58 Pulse Rate 48 04/28/19 11:58 Respiratory Rate 15 04/28/19 11:58 Blood Pressure 117/76 04/28/19 11:58 O2 Sat by Pulse Oximetry 98 04/28/19 11:58 Oxygen Delivery Oxygen Delivery Room Air Chest Pain - MDM Narrative Medical decision making narrative: DDX: Acute coronary syndrome, Acute myocardial infarct, Anxiety disorder, Aortic dissection, Aortic stenosis, Asthma exacerbation, Bronchitis, Chest pain, Chest pain, acute, Cholecystitis, Cholelithiasis, Congestive heart failure, Contusion, Costochondritis, Dysrhythmia, Esophageal rupture, Esophagitis, Gastritis, GERD, Gun shot wound chest, Hiatal hernia, Hypertroph cardiomyopathy, Trang-Duron syndrome, Mitral stenosis, Mitral valve prolapse, Musculoskeletal pain, Myocardial infarction, Myocarditis, Peptic ulcer disease, Pericarditis, Pleurisy, Pneumomediastinum, Pneumonia, Pneumothorax, Pulmonary edema, Pulmonary embolism, Rib fracture, Stab wound chest, Stable angina, Unstable angina Admit Note I have spoken with the patient and/or caregivers. I have explained the patient's condition, diagnoses and treatment plan based on the information available to me at this time. I have answered the patient's and/or caregiver's questions and addressed any concerns. The patient and/or caregivers have as good an understanding of the patient's diagnosis, condition and treatment plan as can be expected at this point. The patient has been stabilized within the capability of the emergency department. The patient will be transported for further care and management or will be moved to an observation or inpatient service. I have communicated with the staff or medical practitioner taking over this patient's care. - Lab Data Result diagrams: 04/27/19 16:49 04/27/19 16:49 Lab Results 04/27/19 04/27/19 04/27/19 Range/Units 16:49 16:49 16:49 WBC 9.8 (4.3-11.1) K/mcL RBC 4.76 (3.82-4.97) M/mcL Hgb 13.9 (11.5-15.4) g/dL Hct 41.9 (35.3-44.9) % MCV 88.0 (83.0-100.0) fL MCH 29.2 (28.0-33.3) pg MCHC 33.2 (31.6-35.5) g/dL RDW 12.2 (11.5-14.5) % Plt Count 242 (140-400) K/mcL MPV 9.7 (9.4-12.4) fL Immature Gran % 0.6 (0-4) % Seg Neutrophils % 58.9 % Lymphocytes % 27.4 % Monocytes % 9.7 % Eosinophils % 2.8 % Basophils % 0.6 % Neutrophils # 5.8 (1.6-8.9) K/mcL Lymphocytes # 2.7 (0.6-4.6) K/mcL Monocytes # 1.0 (0.0-1.3) K/mcL Eosinophils # 0.3 (0.0-0.6) K/mcL Basophils # 0.1 (0.0-0.2) K/mcL PT 11.4 (9.4-12.1) Seconds INR 1.0 APTT 30.6 (26.0-36.0) Seconds D-Dimer 354 (0-500) ng/mLFEU Sodium 139 (136-145) mEq/L Potassium 3.6 (3.5-5.1) mEq/L Chloride 102 (98-107) mEq/L Carbon Dioxide 28 (23-29) mEq/L BUN 13 (6-20) mg/dL Creatinine 0.68 (0.60-1.20) mg/dL Est GFR ( Amer) > 60 (> 60) Est GFR (Non-Af Amer) > 60 (> 60) BUN/Creatinine Ratio 19 (6-26) Glucose 113 H (70-105) mg/dL Calculated Osmolality 289 (280-300) Calcium 9.5 (8.6-10.3) mg/dL Troponin I < 0.03 (< 0.04) ng/mL Urine Test (Negative) Urine Opiates Screen (Wovzlg=879) ng/mL Ur Buprenorphine Scrn (Cutoff=5) ng/mL Ur Barbiturates Screen (Xktuyb=280) ng/mL Ur Phencyclidine Scrn (Cutoff=25) ng/mL Ur Amphetamines Screen (Fqtzjk=9290) ng/mL U Benzodiazepines Scrn (Aycmdv=226) ng/mL Urine Cocaine Screen (Cutoff= 300) ng/mL U Marijuana (THC) Screen (Cutoff = 50) ng/mL Ur Drug Screen Interp 04/27/19 04/27/19 Range/Units 17:25 17:34 WBC (4.3-11.1) K/mcL RBC (3.82-4.97) M/mcL Hgb (11.5-15.4) g/dL Hct (35.3-44.9) % MCV (83.0-100.0) fL MCH (28.0-33.3) pg MCHC (31.6-35.5) g/dL RDW (11.5-14.5) % Plt Count (140-400) K/mcL MPV (9.4-12.4) fL Immature Gran % (0-4) % Seg Neutrophils % % Lymphocytes % % Monocytes % % Eosinophils % % Basophils % % Neutrophils # (1.6-8.9) K/mcL Lymphocytes # (0.6-4.6) K/mcL Monocytes # (0.0-1.3) K/mcL Eosinophils # (0.0-0.6) K/mcL Basophils # (0.0-0.2) K/mcL PT (9.4-12.1) Seconds INR APTT (26.0-36.0) Seconds D-Dimer (0-500) ng/mLFEU Sodium (136-145) mEq/L Potassium (3.5-5.1) mEq/L Chloride (98-107) mEq/L Carbon Dioxide (23-29) mEq/L BUN (6-20) mg/dL Creatinine (0.60-1.20) mg/dL Est GFR ( Amer) (> 60) Est GFR (Non-Af Amer) (> 60) BUN/Creatinine Ratio (6-26) Glucose (70-105) mg/dL Calculated Osmolality (280-300) Calcium (8.6-10.3) mg/dL Troponin I (< 0.04) ng/mL Urine Test Negative (Negative) Urine Opiates Screen Negative (Aoocbw=413) ng/mL Ur Buprenorphine Scrn Positive H (Cutoff=5) ng/mL Ur Barbiturates Screen Negative (Halavv=984) ng/mL Ur Phencyclidine Scrn Negative (Cutoff=25) ng/mL Ur Amphetamines Screen Negative (Uhfajp=9748) ng/mL U Benzodiazepines Scrn Negative (Wowzgb=803) ng/mL Urine Cocaine Screen Negative (Cutoff= 300) ng/mL U Marijuana (THC) Screen Negative (Cutoff = 50) ng/mL Ur Drug Screen Interp See Below Heart Score - Score EKG: Normal Age: 45-65 Risk Factors: 1-2 risk factors Troponin: Less than normal limit
[2019-04-27 17:25] LABS: BUN/Creatinine Ratio 19 (6-26); Blood Urea Nitrogen 13 mg/dL (6-20); Calcium 9.5 mg/dL (8.6-10.3); Carbon Dioxide 28 mEq/L (23-29); Chloride 102 mEq/L (98-107); Glucose 113 mg/dL (70-105); Osmolality,Calculated 289 (280-300); Potassium 3.6 mEq/L (3.5-5.1); Sodium 139 mEq/L (136-145); Troponin I < 0.03 ng/mL (< 0.04); eGFR For African Americans > 60 (> 60); eGFR For Non-African Americans > 60 (> 60)
[2019-04-27 17:43] LABS: Prothrombin Time 11.4 Seconds (9.4-12.1)
[2019-04-27 17:46] LABS: Activated Partial Thrombo Time 30.6 Seconds (26.0-36.0)
[2019-04-27 17:55] LABS: Amphetamine Screen,Urine Negative ng/mL (Cutoff=1000); Barbiturate Screen,Urine Negative ng/mL (Cutoff=200); Benzodiazepines Screen,Urine Negative ng/mL (Cutoff=200); Cannabinoid Screen,Urine Negative ng/mL (Cutoff = 50); Cocaine Screen,Urine Negative ng/mL (Cutoff= 300); Opiate Screen,Urine Negative ng/mL (Cutoff=300); Phencyclidine Screen,Urine Negative ng/mL (Cutoff=25)
[2019-04-27] MEDS ORDERED: 0.9 % Sodium Chloride 1,000 ML IV ONE (21:27)
[2019-04-27] MEDS ORDERED: Aspirin 325 MG TABLET PO ONE (21:28)
[2019-04-27] MEDS ORDERED: Morphine Sulfate 2 MG/ML SYRINGE IVP ONE (21:30)
[2019-04-27] MEDS: Nitroglycerin 0.4 MG TAB.SUBL SL SCH ×2 (21:59→22:03)
[2019-04-27] MEDS ORDERED: (Diclofenac Sodium [Voltaren] 1 APPL) TP PRN (23:39)
[2019-04-27] MEDS ORDERED: Ondansetron ODT 4 MG TAB.RAPDIS SL PRN (23:39)
[2019-04-27] MEDS ORDERED: *HR* OxyCODONE/APAP 10/325 TABLET PO PRN (23:39)
[2019-04-27] MEDS ORDERED: *HR* Dextrose 50 % in Water (Syg) 50 ML SYRINGE IVP PRN (23:41)
[2019-04-27] MEDS ORDERED: Dextrose Gel 15 GM/37.5 ML TUBE PO PRN ×2 (23:41)
[2019-04-28] MEDS ORDERED: *HR* OxyCODONE/APAP 10/325 TABLET PO PRN (01:34)
[2019-04-28] MEDS ORDERED: Ketorolac 15 MG/ML VIAL IVP ONE (02:48)
--- NOTE | 2019-04-28 03:11 | Internal Med History&Physical ---
Date of Encounter: 04/28/19 Time of Encounter: 03:10 Internal Medicine - H&P: HPI Chief complaint: chest pain Admitted From: Home Plans for Post Hospital Care: Home History of present illness: Valentina Howe is a 49 year old woman with hypertension, diabetes, asthma and mood disorder who is being evaluated as an outpatient by cardiology for recurring syncopal episodes having undergone nuclear stress test, echo, cardiac tilt table testing and currently has a Holter monitor in place. She comes to the emergency room stating she was told by her [employer] consultant to come in for evaluation as she had 3 syncopal episodes 2 nights ago at which time the Holter monitoring company and her [employer] consultant called her telling her to come in for evaluation a cousin arrhythmia was detected but she declined stating she would go to her PCP for evaluation the following morning. Yesterday at her PCPs office she develops severe chest pain and was presyncopal at which time she also received a call stating she had another arrhythmia and would need evaluation. In the ER she was found clinically and hemodynamically stable. Her EKG revealed normal sinus rhythm. Because of complaints of ongoing chest pain she was given a dose of nitroglycerin and morphine with loading dose of aspirin. She is unable to tell me who her [employer] consultant is and I asked her to come in for evaluation. Head CT was done with no acute anomalies seen. Chest x-ray was also unremarkable. She is admitted for observation and cardiology evaluation. Vitals: Reviewed General: Well-developed white woman lying in bed in notable discomfort. Skin: Warm, flushed and dry. HEENT: Moist mucous membranes. No conjunctivae pallor. Neck: No lymphadenopathy. No JVD. No carotid bruits. No palpable thyroid. Chest: Normal thoracic expansion. Normal breath sounds. Clear to auscultation. Heart: Normal S1 & S2; rhythmic. No rubs or murmurs. Abdomen: Non-distended, soft and non-tender to palpation. No peritoneal reaction. Extremities: No clubbing, cyanosis or edema. No calf tenderness. Normal distal pulses. Neurological: Awake, alert and oriented to person, place and time. No focal deficits. Psych: Affect appropriate. Assessment/Plan 1. Chest pain: Unclear etiology. No concomitant respiratory symptoms. R eportedly related with an episode of arrhythmia based on the correlation she describes from the Holter monitoring report. So far she is in normal sinus rhythm and her EKG has been unremarkable. Her blood work is also unrevealing. We will trend her troponins, monitor her on telemetry and consult cardiology for further evaluation as she has already had some extensive studies done as an outpatient without signs of valvulopathy, ischemic heart disease or structural defects. 2. Asthma: Mild persistent and currently asymptomatic. Medications resumed. 3. Diabetes: Unknown state of control. We will place on sliding scale and check A1c. 4. Mood disorder: We will resume home medications once confirmed. Past Med Surg Social Fam HX - Past Medical History Medical history: asthma, diabetes, fibromyalgia, hypertension, kidney stones, migraine, other Additional medical history: DJD, gastritis, chronic pain Psychiatric history: anxiety, depression, panic disorder - Past Surgical History Surgical History: hysterectomy, orthopedic, other, other Additional surgical history: kidney stone, partial hysterectomy, D&C - Social History Smoking Status: Never smoker Smokeless Tobacco Status: No Alcohol use: rarely Drug use: none - Family History Mother Living Status: Still Living Hx Family Cardiac Disorders: Yes (cva) Hx Family Respiratory Disorders: Yes (copd) Hx Family Cancer: Yes (uterine) Father Living Status: Still Living Hx Family Cardiac Disorders: Yes Hx Family Respiratory Disorders: Yes (copd) Hx Family Cancer: Yes Hx Family Endocrine Disorder: Yes (dm) Internal Medicine - H&P: Meds Albuterol Sulfate [Ventolin Hfa] 2 puff IH Q4H PRN 12/09/16 [History] Budesonide/Formoterol 160/4.5 [Symbicort 160/4.5] 2 puff IH BID 12/09/16 [History] Diclofenac Sodium [Voltaren] 1 appl TP QID PRN 12/09/16 [History] Oxybutynin [Ditropan] 5 mg PO BID 12/09/16 [History] Pantoprazole Sodium [Protonix] 40 mg PO DAILY 12/09/16 [History] clonazePAM [Klonopin] 1 mg PO BID 12/09/16 [History] metFORMIN [Glucophage] 500 mg PO BIDWM 12/09/16 [History] Albuterol Sulfate [Ventolin Hfa] 90 mcg IN DAILY 04/27/19 [History] Atorvastatin Calcium [Lipitor] 10 mg PO HS 04/27/19 [History] Dexlansoprazole [Dexilant] 60 mg PO DAILY 04/27/19 [History] Ondansetron [Zofran ODT] 8 mg SL Q8H PRN 04/27/19 [History] Oxybutynin Chloride [Ditropan XL] 5 mg PO DAILY 04/27/19 [History] Oxycodone HCl/Acetaminophen [Endocet 10-325 mg Tablet] 2 tab PO BID PRN 04/27/19 [History] Prazosin [Minipress] 1 mg PO HS 04/27/19 [History] SUMAtriptan succinate [Imitrex] 25 mg PO PRN PRN 04/27/19 [History] Vilazodone HCl [Viibryd] 40 mg PO DAILY 04/27/19 [History] Allergy/AdvReac Type Severity Reaction Status Date / Time oseltamivir [From Tamiflu] Allergy Swelling Verified 03/16/16 06:04 of Lip/Tongue/Throat Sulfa (Sulfonamide Allergy Swelling Verified 03/16/16 06:04 Antibiotics) of Lip/Tongue/Throat All Systems PM: A 10-system review of systems was performed and is negative for pertinent findings except as documented above in the HPI. - Constitutional Vitals: Temp Pulse Resp BP Pulse Ox 97.9 F 59 16 125/76 95 04/27/19 22:34 04/27/19 22:34 04/27/19 22:34 04/27/19 22:34 04/27/19 22:34 Exam: . Internal Med - H&P Results - Labs CBC & Chem 7: 04/27/19 16:49 04/27/19 16:49 Labs: Short CBC 04/27/19 Range/Units 16:49 WBC 9.8 (4.3-11.1) K/mcL Hgb 13.9 (11.5-15.4) g/dL Hct 41.9 (35.3-44.9) % Plt Count 242 (140-400) K/mcL Neutrophils # 5.8 (1.6-8.9) K/mcL BMP 04/27/19 16:49 Sodium 139 Potassium 3.6 Chloride 102 Carbon Dioxide 28 BUN 13 Creatinine 0.68 Glucose 113 H Calcium 9.5 Cardiac Enzymes 04/27/19 04/27/19 Range/Units 16:49 21:54 Troponin I < 0.03 < 0.03 (< 0.04) ng/mL - Impressions ITS Impressions Chest X-Ray 04/27/19 16:27 IMPRESSION: No radiographic evidence of acute cardiopulmonary disease. D/ / Javier Ji / Javier Ji Interpreting Provider: Javier Ji Head CT 04/27/19 17:19 IMPRESSION: No acute intracranial abnormality. D/ / Edwardo Kowalski MD / Edwardo Kowalski MD Interpreting Provider: Edwardo Kowalski MD - Time Spent With Patient Total time spent is greater than 50% in coordination of care (as documented) at patient's floor/unit and/or counseling patient:
[2019-04-28 05:18] LABS: Chol/HDL Ratio 4.9 (0-4.9)
[2019-04-28 05:33] LABS: Thyroid Stimulating Hormone 1.69 mcIU/mL (0.340-5.600)
[2019-04-28 08:13] LABS: Estimated Average Glucose 128 mg/dl
[2019-04-28] MEDS: Insulin LISPRO 300 UNITS/3 ML VIAL SQ SCH ×2 (08:16→12:02)
--- NOTE | 2019-04-28 08:24 | Cardiology Consult Note ---
<Taras Kauffman N - Last Filed: 04/28/19 11:46> Date of Encounter: 04/28/19 Time of Encounter: 08:24 Assessment and Plan (1) Syncopal episodes Current Visit: Yes Status: Chronic 49F with PMH significant for HTN, diabetes, and recurrent syncopal episodes complaining of chest pain. Troponins x3, ECG, and head CT all negative in the ED Patient had a non-exercise nuclear stress test 12/15/18 which was negative. Echo from 03/31/19 with EF of 60-65%. Patient also had a negative tilt table test on 03/31/2019. Patient has had a Holter monitor in place by Dr. Marshall which has had no episodes of arrhythmias -Patient with an extensive cardiac workup of syncopal episodes without any signs of cardiac cause of syncope. -No evidence of acute coronary syndrome on presentation today as chest pain is reproducible with palpation and otherwise negative workup. -Would recommend neurology consultation as patient has had workup at [facility] for sleep issues and medications were recently altered. Qualifiers: Qualified Code(s): R55 - Syncope and collapse (2) Chest wall pain Current Visit: Yes Status: Acute Discussion w patient/family: The assessment and plan as outlined above was discussed with the patient and/or family members who expressed understanding and agreement. All questions were answered. Thank you for involving us in the care of your patient. Please call with any questions. History of Present Illness Consult date: 04/28/19 Chief complaint: Chest pain History of present illness: Ms. Howe is a 49 year old female with PMH significant for hypertension, diabetes, asthma, and fibromyalgia presents after developing severe chest pain and presyncope while at her PCPs office. Patient has been on a Holter monitor and had 3 syncopal episodes 2 nights prior to arrival. Patient was urged to go to the emergency room but refused stating she would go to see her primary care doctor, which is when she had the chest pain and was alerted to an arrhythmia during that time. Due to persistent chest pain in the ED patient was given aspirin, nitroglycerin and morphine. Patient had a negative ECG, troponin 3, chest x-ray, and head CT in the ED. Patient had a non-exercise nuclear stress test 12/15/18 which was negative. Echo from 03/31/19 with EF of 60-65% without echocardiographic evidence of tamponade. Patient also had a negative tilt table test on 03/31/2019. Past Med Surg Social Fam HX - Past Medical History Medical history: asthma, diabetes, fibromyalgia, hypertension, kidney stones, migraine, other Additional medical history: DJD, gastritis, chronic pain Psychiatric history: anxiety, depression, panic disorder - Past Surgical History Surgical History: hysterectomy, orthopedic, other, other Additional surgical history: kidney stone, partial hysterectomy, D&C - Social History Smoking Status: Never smoker Smokeless Tobacco Status: No Alcohol use: rarely Drug use: none - Family History Mother Living Status: Still Living Hx Family Cardiac Disorders: Yes (cva) Hx Family Respiratory Disorders: Yes (copd) Hx Family Cancer: Yes (uterine) Father Living Status: Still Living Hx Family Cardiac Disorders: Yes Hx Family Respiratory Disorders: Yes (copd) Hx Family Cancer: Yes Hx Family Endocrine Disorder: Yes (dm) Medications and Allergies Albuterol Sulfate [Ventolin Hfa] 2 puff IH Q4H PRN 12/09/16 [History] Budesonide/Formoterol 160/4.5 [Symbicort 160/4.5] 2 puff IH BID 12/09/16 [History] Diclofenac Sodium [Voltaren] 1 appl TP QID PRN 12/09/16 [History] Oxybutynin [Ditropan] 5 mg PO BID 12/09/16 [History] Pantoprazole Sodium [Protonix] 40 mg PO DAILY 12/09/16 [History] clonazePAM [Klonopin] 1 mg PO BID 12/09/16 [History] metFORMIN [Glucophage] 500 mg PO BIDWM 12/09/16 [History] Albuterol Sulfate [Ventolin Hfa] 90 mcg IN DAILY 04/27/19 [History] Atorvastatin Calcium [Lipitor] 10 mg PO HS 04/27/19 [History] Dexlansoprazole [Dexilant] 60 mg PO DAILY 04/27/19 [History] Ondansetron [Zofran ODT] 8 mg SL Q8H PRN 04/27/19 [History] Oxybutynin Chloride [Ditropan XL] 5 mg PO DAILY 04/27/19 [History] Oxycodone HCl/Acetaminophen [Endocet 10-325 mg Tablet] 2 tab PO BID PRN 04/27/19 [History] Prazosin [Minipress] 1 mg PO HS 04/27/19 [History] SUMAtriptan succinate [Imitrex] 25 mg PO PRN PRN 04/27/19 [History] Vilazodone HCl [Viibryd] 40 mg PO DAILY 04/27/19 [History] Allergy/AdvReac Type Severity Reaction Status Date / Time oseltamivir [From Tamiflu] Allergy Swelling Verified 03/16/16 06:04 of Lip/Tongue/Throat Sulfa (Sulfonamide Allergy Swelling Verified 03/16/16 06:04 Antibiotics) of Lip/Tongue/Throat All Systems Review: The remainder of the systems were reviewed and are negative - Constitutional Constitutional: headache(s), no chills, no fever(s) - EENT Eyes: no blurred vision, no loss of vision - Cardiovascular Cardiovascular: chest pain at rest, no chest pain with exertion, no dyspnea at rest, no dyspnea on exertion, no leg edema, no lightheadedness, no palpitations - Respiratory Respiratory: no cough, no dyspnea - Gastrointestinal Gastrointestinal: no abdominal pain, no diarrhea, no nausea - Musculoskeletal Musculoskeletal: no abnormal gait, no muscle cramps - Integumentary Integumentary: no erythema, no rash - Neurological Neurological: syncope, no abnormal speech, no memory loss - Hematological/Lymphatic Hematologic/Lymphatic: no easy bleeding, no easy bruising Physical Examination Vital Signs, Last 4 Hours Temp Pulse Resp BP Pulse Ox 04/28/19 08:16 98.0 F 68 16 127/84 98 04/28/19 04:45 98.1 F 71 16 122/80 96 General: Conversant, No Apparent Distress HEENT: Atraumatic, Normocephaly, Mucus Membranes Moist Neck: No JVD, Normal carotid pulses Cardiac: Reg Rate and Rhythm, Normal S1 and S2, No Murmur Lungs: Normal Breath Sounds, No Wheeze, Rales, Rhonchi Neuro: Alert and responsive, No focal deficits noted Abdomen: Soft, Non-Tender Skin: No rashes noted on visualized skin Musculoskeletal: Other (Chest Wall TTP over the left chest) Extremities: No Clubbing, No Cyanosis, No Edema, Normal Pulses Results 04/27/19 16:49 04/27/19 16:49 Lab Results 04/27/19 04/27/19 04/27/19 16:49 16:49 16:49 WBC 9.8 Hgb 13.9 Hct 41.9 Plt Count 242 INR 1.0 APTT 30.6 D-Dimer 354 Sodium 139 Potassium 3.6 Chloride 102 Carbon Dioxide 28 BUN 13 Creatinine 0.68 Glucose 113 H Calcium 9.5 Troponin I < 0.03 TSH 04/27/19 04/28/19 04/28/19 21:54 04:33 04:33 WBC Hgb Hct Plt Count INR APTT D-Dimer Sodium Potassium Chloride Carbon Dioxide BUN Creatinine Glucose Calcium Troponin I < 0.03 < 0.03 TSH 1.690 Consult Discharge Plan - Plan Referrals: NONE,PCP [Primary Care Provider] - <Virgen Marshall - Last Filed: 04/28/19 12:09> Date of Encounter: 04/28/19 - Attending Attestation Patient was seen and evaluated independently by me. Findings, assessment and plan were discussed at length with patient, questions answered. Agree with nurse practitioner's/resident's documentation. Addition/update as follows, 49yoCF ho CAD USHA-LAD and RCA 2014, bioprosthetic MVR, IDDM, HTN, hypothyroidism. P/w severe left arm pain after mechanical fall. Imp L-humerus fracture. Consulted for preop CV eval. Hypertensive on admission with sinus tachy. METs at baseline likely >4. No angina, dyspnea, LE edema, palpitations. ECG SR, LBBB (unclear duration). TTE EF 60% with normal functioning MVR. Trop 0.06 flat. No JUSTIN. A: Moderately elevated CV risk for surgery, MACE 6.6%. No angina/CHF, unstable arrhythmia or decompensated valvular abn Mild trop elevation, likely deman-supply mismatch with underlying CAD Bioprosthetic MVR, normal function IDDM P: No further cardiac w/u for surgery [place]-op lopressor resume plavix when able post-op Virgen Marshall MD, PhD Assessment and Plan Discussion w patient/family: The assessment and plan as outlined above was discussed with the patient and/or family members who expressed understanding and agreement. All questions were answered. Thank you for involving us in the care of your patient. Please call with any questions. History of Present Illness History of present illness: Ms. Howe is a 49 year old female All Systems Review: The remainder of the systems were reviewed and are negative Physical Examination Vital Signs, Last 4 Hours Temp Pulse Resp BP Pulse Ox 04/28/19 08:16 98.0 F 68 16 127/84 98 Results 04/27/19 16:49 04/27/19 16:49 Lab Results 04/27/19 04/27/19 04/27/19 16:49 16:49 16:49 WBC 9.8 Hgb 13.9 Hct 41.9 Plt Count 242 INR 1.0 APTT 30.6 D-Dimer 354 Sodium 139 Potassium 3.6 Chloride 102 Carbon Dioxide 28 BUN 13 Creatinine 0.68 Glucose 113 H Calcium 9.5 Troponin I < 0.03 TSH 04/27/19 04/28/19 04/28/19 21:54 04:33 04:33 WBC Hgb Hct Plt Count INR APTT D-Dimer Sodium Potassium Chloride Carbon Dioxide BUN Creatinine Glucose Calcium Troponin I < 0.03 < 0.03 TSH 1.690
[2019-04-28] MEDS ORDERED: *HR* OxyCODONE/APAP 7.5/325 TABLET PO PRN (08:43)
[2019-04-28] MEDS ORDERED: (Vilazodone Hcl [Viibryd] 40 MG) PO SCH (09:00)
[2019-04-28] MEDS ORDERED: clonazePAM 1 MG TABLET PO SCH (09:00)
[2019-04-28] MEDS ORDERED: NON-FORMULARY MEDICATION 1 EACH EACH (Pantoprazole Sodium [Protonix] 40 MG) PO SCH (09:00)
[2019-04-28] MEDS ORDERED: Budesonide/Formoterol 160/4.5 1 PUFF INH IH SCH (10:00)
[2019-04-28 12:00] VITALS: BP 117/76
--- NOTE | 2019-04-28 13:43 | Electrocardiograph Report ---
[address] [address] Test Date: 2019-04-27 Pat Name: Valentina Howe Department: 104 Room: 3B Gender: F Tape Controlled Machine Stitcher: Dania : 1970 Requested By: Shahriar Kendall Order Number: [id number] Reading MD: Laron Munoz Measurements Intervals [place] Rate: 71 P: 44 VT: 136 QRS: 35 QRSD: 89 T: 73 QT: 371 QTc: 394 Interpretive Statements SINUS RHYTHM Electronically Signed On 04-28-2019 13:41:55 EDT by Laron Munoz
--- NOTE | 2019-04-28 13:56 | Discharge Summary ---
- NOTES TO OUTPATIENT PROVIDER Notes to Outpatient Provider: f/u with PCP in one week. f/u with Neurology in one week. f/u at [facility] for sleep study. Date of Encounter: 04/28/19 Time of Encounter: 13:54 - Discharge Diagnosis (1) Chest wall pain Priority: Primary Status: Acute (2) COPD (chronic obstructive pulmonary disease) Priority: Secondary Status: Chronic Qualifiers: COPD type: unspecified COPD Qualified Code(s): J44.9 - Chronic obstructive pulmonary disease, unspecified (3) Fibromyalgia Priority: Secondary Status: Chronic (4) Depression Priority: Secondary Status: Chronic Qualifiers: Depression Type: unspecified Qualified Code(s): F32.9 - Major depressive disorder, single episode, unspecified (5) HTN (hypertension) Priority: Secondary Status: Chronic Qualifiers: Hypertension type: essential hypertension Qualified Code(s): I10 - Essential (primary) hypertension Hospital course: Ms. Howe is a 49 year old female with hypertension, diabetes, asthma, COPD and mood disorder who is being evaluated as an outpatient by cardiology for recurring syncopal episodes having undergone nuclear stress test, echo, cardiac tilt table testing and currently has a Holter monitor in place. She comes to the emergency room stating she was told by her clinical quality assurance specialist to come in for evaluation as she had 3 syncopal episodes 2 nights ago at which time the Holter monitoring company and her clinical quality assurance specialist called her telling her to come in for evaluation. Yesterday at her PCPs office she develops severe chest pain and was presyncopal. In the ER she was found clinically and hemodynamically stable. Her EKG revealed normal sinus rhythm. She was admitted in the hospital and placed her on informatics developer. Her serial troponin came back as negative. She was evaluated by clinical quality assurance specialist who reviewed her Holter monitor and did not notice any arrhythmias. Her current chest pain seems to be reproducible probably due to musculoskeletal pain. At this point clinical quality assurance specialist recommended to follow up with the neurology for her peripheral neuropathy as well as follow up at [facility] for her sleep study. So will d/c her home in stable condition today. - Time Spent with Patient Total time spent providing and/or coordinating discharge services: - Discharge Medications Prescriptions: New Aspirin Enteric Coated [Aspirin EC] 81 mg PO DAILY #30 tablet.dr Nugent Oxybutynin [Ditropan] 5 mg PO BID metFORMIN [Glucophage] 500 mg PO BIDWM clonazePAM [Klonopin] 1 mg PO BID Budesonide/Formoterol 160/4.5 [Symbicort 160/4.5] 2 puff IH BID Pantoprazole Sodium [Protonix] 40 mg PO DAILY Diclofenac Sodium [Voltaren] 1 appl TP QID PRN PRN Reason: Pain Albuterol Sulfate [Ventolin Hfa] 2 puff IH Q4H PRN PRN Reason: Shortness Of Breath Oxybutynin Chloride [Ditropan XL] 5 mg PO DAILY Ondansetron [Zofran ODT] 8 mg SL Q8H PRN PRN Reason: Nausea Vilazodone HCl [Viibryd] 40 mg PO DAILY SUMAtriptan succinate [Imitrex] 25 mg PO PRN PRN PRN Reason: Nausea And Vomiting Prazosin [Minipress] 1 mg PO HS Dexlansoprazole [Dexilant] 60 mg PO DAILY Atorvastatin Calcium [Lipitor] 10 mg PO HS Albuterol Sulfate [Ventolin Hfa] 90 mcg IN DAILY Changed Oxycodone HCl/Acetaminophen [Endocet 10-325 mg Tablet] 1 tab PO BID PRN 1 Days #1 PRN Reason: Pain Home Medications: Albuterol Sulfate [Ventolin Hfa] 2 puff IH Q4H PRN 12/09/16 [History] Budesonide/Formoterol 160/4.5 [Symbicort 160/4.5] 2 puff IH BID 12/09/16 [History] Diclofenac Sodium [Voltaren] 1 appl TP QID PRN 12/09/16 [History] Oxybutynin [Ditropan] 5 mg PO BID 12/09/16 [History] Pantoprazole Sodium [Protonix] 40 mg PO DAILY 12/09/16 [History] clonazePAM [Klonopin] 1 mg PO BID 12/09/16 [History] metFORMIN [Glucophage] 500 mg PO BIDWM 12/09/16 [History] Albuterol Sulfate [Ventolin Hfa] 90 mcg IN DAILY 04/27/19 [History] Atorvastatin Calcium [Lipitor] 10 mg PO HS 04/27/19 [History] Dexlansoprazole [Dexilant] 60 mg PO DAILY 04/27/19 [History] Ondansetron [Zofran ODT] 8 mg SL Q8H PRN 04/27/19 [History] Oxybutynin Chloride [Ditropan XL] 5 mg PO DAILY 04/27/19 [History] Prazosin [Minipress] 1 mg PO HS 04/27/19 [History] SUMAtriptan succinate [Imitrex] 25 mg PO PRN PRN 04/27/19 [History] Vilazodone HCl [Viibryd] 40 mg PO DAILY 04/27/19 [History] Aspirin Enteric Coated [Aspirin EC] 81 mg PO DAILY #30 tablet. 04/28/19 [Rx] Oxycodone HCl/Acetaminophen [Endocet 10-325 mg Tablet] 1 tab PO BID PRN 1 Days #1 04/28/19 [Rx] Allergies/Adverse Reactions: Allergy/AdvReac Type Severity Reaction Status Date / Time oseltamivir [From Tamiflu] Allergy Swelling Verified 03/16/16 06:04 of Lip/Tongue/Throat Sulfa (Sulfonamide Allergy Swelling Verified 03/16/16 06:04 Antibiotics) of Lip/Tongue/Throat Date of admission: 04/27/19 21:44 Primary care physician: PCP NONE Consults: 04/27/19 21:45 Consult to Cardiology [CONS] Routine Comment: Consulting Provider: Cardiology Shelly Reason for Consult: PAtient with Holter monitor for syncopal episodes who had an unspecified irregular rhythm detected and instructed to come in for evaluation by her clinical quality assurance specialist Call Completed: No - Constitutional Vitals: Temp Pulse Resp BP Pulse Ox 97.9 F 48 15 117/76 98 04/28/19 11:58 04/28/19 11:58 04/28/19 11:58 04/28/19 11:58 04/28/19 11:58 General appearance: Present: A&O X 3, no acute distress, answers questions ap propriately Exam: Gen: Alert, awake, Oriented to time,place and person Chest: Diminished breath sounds B/L, No wheezing, No crackles, No rales Heart: S1S2+ RRR No murmurs.. Reproducible chest wall tenderness noticed around her sternal area. Abd: Soft, NT, BS +, No organomegaly Ext: No edema, pulses are palpable, No calf tenderness Neuro : No acute focal neuro deficits noticed Skin: No rash. - Patient Status Disposition: Home, Self-Care Condition: Good Overall status at discharge: patient is back to baseline - Discharge Instructions Follow Up With: Michael Smith MD [Non-Partnered Physician] - 05/21/19 10:45 am Virgen Marshall MD [Non-Partnered Physician] - Margarita Alvarenga MD [Partnered Physician] - - Diet and Activity Activity: increase activity as tolerated Diet: low salt diet
[2019-04-28] MEDS ORDERED: Insulin LISPRO 300 UNITS/3 ML VIAL SQ SCH (21:00)
== END 2019-04-28 16:29 | disposition home or self-care (01) ==
LOC: 3BNU 16:13 → EMEROOARM 16:13 → SUATTDRO 21:44 → 3BNU 22:39
PROVIDERS: ADMIT Internal Medicine; ATTEND Family Medicine